=== PATIENT | male | born 1985 | race African-American/Black ===

== ENCOUNTER 2018-11-07 23:00 | Emergency (ER) | payer SELFPAY ==
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
[2018-11-07 23:58] VITALS: BP 123/82; PULSE 79; TEMP 98.7; BMI 25.0
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
== END 2018-11-08 02:04 | disposition home or self-care (01) ==
LOC: JER 23:00
PROC: 2W3JX1Z Immobilization of Right Finger using Splint (ICD-10-PCS; principal; 2018-11-07)
DX: S62.610A Displaced fracture of proximal phalanx of right index finger, initial encounter for closed fracture (principal); Y04.0XXA Assault by unarmed brawl or fight, initial encounter; Y93.89 Activity, other specified; Y92.89 Other specified places as the place of occurrence of the external cause; Y99.8 Other external cause status
CPT/HCPCS: 73130-TC-RT-FY; 99281-25